=== PATIENT | male | born 2000 | race Caucasian/White ===

== ENCOUNTER 2022-07-13 12:21 | Emergency (ER) | payer OTHER, SELFPAY ==
--- NOTE | ~2022-07-13 | XR_ITS ---
EXAMINATION: XR tibia fibula LT 2V DATE: 07/13/2022 13:09 INDICATION: Left lower leg injury and pain. TECHNIQUE: 2 views of left tibia and fibula were obtained. COMPARISON: None. FINDINGS: There is an oblique fracture of proximal fibular diaphysis. The distal fracture fragment de monstrates 4 mm anterior displacement. Joint spaces are normal. IMPRESSION: 1. Oblique fracture of proximal fibular diaphysis. Reviewed, dictated and finalized at location A. [employer] TEACHER
[2022-07-13 12:35] VITALS: BP 145/87; PULSE 87; RESP 15; TEMP 37.4; O2SAT 100
--- NOTE | 2022-07-13 12:50 | ED.GENADULT ---
HPI - General Adult General Chief complaint: Extremity Injury, Lower Stated complaint: L LEG INJURY Time Seen by Provider: 07/13/22 12:41 History of Present Illness HPI narrative: 22-year-old male no medical problems presents to the emergency room for evaluation of left lower leg injury. Patient states 2 days ago he was taking his dog outside, where the dog wrapped itself around his left leg causing him to fall. States he felt his lower leg twist. Patient is complaining of pain to the lateral side of his left lower extremity. Patient dates he is able to ambulate and even stand on one leg without any pain describes the pain as a throbbing sensation. Has taken ibuprofen once with some improvement of pain. Denies any pain in his knee or his ankle. Review of Systems Review of Systems: CONSTITUTIONAL: Denies fever, chills, or sweats. EYES: Denies visual changes, redness, or discharge. ENT: Denies rhinorrhea, congestion, sore throat, or otalgia. CARDIOVASCULAR: Denies chest pain, palpitations, or edema. RESPIRATORY: Denies cough or dyspnea. GASTROINTESTINAL: Denies abdominal pain, nausea, vomiting, or diarrhea. GENITOURINARY: Denies dysuria or hematuria. SKIN: Denies rash or itching. MUSCULOSKELETAL: Reports left lower leg pain NEUROLOGIC: Denies headache, numbness, dizziness, or weakness. PSYCHIATRIC: Denies anxiety or depression. Exam Narrative: GENERAL: Well-appearing, well-nourished, no physical limitations, and in no acute distress. HEAD: Normocephalic, atraumatic. EYES: Conjunctivae normal, PERRLA and EOMI. CHEST: Clear to auscultation. No respiratory distress. No wheezes rales or rhonchi. HEART: Regular rate and rhythm. No murmur heard. Normal peripheral pulses. EXTREMITIES: LLE: Tenderness to the lower lateral milan, with notable spasms. No bony tenderness. Full range of motion of the knee and ankle joints. No obvious bony abnormality. Neurovascular is intact distally SKIN: Warm, dry, no rash. No noted wounds NEURO: No focal deficits. Alert and oriented x3. MAEW. CN's II-XI intact bilaterally, antalgic gait PSYCH: Cooperative. Normal mood and affect. Course Vital Signs Vital signs: Vital Signs Temperature 37.4 C 07/13/22 12:35 Pulse Rate 87 07/13/22 12:35 Respiratory Rate 15 07/13/22 12:35 Blood Pressure 145/87 H 07/13/22 12:35 Pulse Oximetry 100 07/13/22 12:35 Oxygen Delivery Room Air 07/13/22 12:35 Temperature 37.4 C 07/13/22 12:35 Pulse Rate 87 07/13/22 12:35 Respiratory Rate 15 07/13/22 12:35 Blood Pressure 145/87 H 07/13/22 12:35 Pulse Oximetry 100 07/13/22 12:35 Oxygen Delivery Room Air 07/13/22 12:35 Medical Decision Making Vital Signs Vital Signs: Vital Signs Temperature 37.4 C 07/13/22 12:35 Pulse Rate 87 07/13/22 12:35 Respiratory Rate 15 07/13/22 12:35 Blood Pressure 145/87 H 07/13/22 12:35 Pulse Oximetry 100 07/13/22 12:35 Oxygen Delivery Room Air 07/13/22 12:35 Temperature 37.4 C 07/13/22 12:35 Pulse Rate 87 07/13/22 12:35 Respiratory Rate 15 07/13/22 12:35 Blood Pressure 145/87 H 07/13/22 12:35 Pulse Oximetry 100 07/13/22 12:35 Oxygen Delivery Room Air 07/13/22 12:35 Imaging Data Radiologist's impression: Impressions Tibia/Fibula X-Ray 07/13/22 13:13 IMPRESSION: 1. Oblique fracture of proximal fibular diaphysis. Discharge Plan Discharge Clinical Impression: Closed left fibular fracture Patient Disposition: Home, Self-Care Condition: Stable Instructions: Antibiotic Form, Leg Fracture (ED) Prescriptions: New hydrocodone-acetaminophen 5-325 mg tablet 1 tablet PO Q6H PRN (Reason: pain) Qty: 15 0RF Follow-up/Referrals: Doug Medrano MD [Physician] - PHYSICIAN,[employer] COLLECTOR ASSISTANT [Primary Care Provider] - Time of Disposition: 13:31
== END 2022-07-13 13:55 | disposition home or self-care (01) ==
PROVIDERS: Emergency Provider Nurse Practitioner Family
DX: S89.292A Other physeal fracture of upper end of left fibula, initial encounter for closed fracture (principal); W18.39XA Other fall on same level, initial encounter
CPT/HCPCS: 29505; 73590; 99284

== ENCOUNTER 2022-09-03 09:03 | Emergency (ER) | payer OTHER, SELFPAY ==
--- NOTE | 2022-09-03 09:13 | ED.URI ---
HPI - URI/Sore Throat General Chief Complaint: Upper Respiratory Infection Stated Complaint: SORE THROAT/FEVER/CONGESTION/EARACHE Time Seen by Provider: 09/03/22 09:12 Source: patient Mode of arrival: ambulatory Limitations: no limitations History of Present Illness HPI Narrative: Lacho is a 22-year-old male patient presenting to clinic today with complaints of sore throat, fever, congestion, and earache. He reports symptoms started on Thursday. MD elicited complaint: fever, sore throat, rhinorrhea and nasal congestion Related Data Allergies Allergy/AdvReac Type Severity Reaction Status Date / Time eggs Allergy Mild Itching Uncoded 09/03/22 09:14 peanuts Allergy Mild Itching Uncoded 09/03/22 09:14 Review of Systems Review of Systems: Pertinent positives per HPI. Patient denies any fever, chills, rash, headache, visual changes, dizziness, cough, shortness of breath, chest pain, palpitations, nausea, vomiting, diarrhea, constipation, abdominal pain, or any urinary issues. PMFSH Past Medical History Medical History Ankle syndesmosis disruption Social History Social History Smoking status: Never smoker Alcohol intake: current Substance use type: does not use Occupation/Education: occupation Additional occupation/education comments: [employer] Gender identity (if verbalized by the patient): Male Comments At the time of my signature, I reviewed and agree with the nursing past medical, surgical, social, and family history. There is no relevant family history pertinent to the patient complaint. Exam Narrative: General: Well-developed, well nourished, in no apparent distress Head: Normocephalic, atraumatic Eyes: Pupils equally round and reactive to light bilaterally, EOM intact, sclera and conjunctive clear, no discharge, lids normal Ears: Left TMs intact, bulging, congested, right TM, intact, bulging, red, ear canals clear, no drainage, grossly hearing normal. Nose: Nares patent, clear nasal discharge, no inflammation, no sinus tenderness. Mouth: Oral pharynx without lesions or masses, good dentition, MMM. Oropharynx red with tonsillar swelling and exudate Neck: Supple, trachea midline, enlargement of anterior or posterior cervical nodes, no thyroid masses or goiter palpable. Cardio: Regular rate and rhythm, s1 and s2 normal, no murmur appreciated. Resp: Clear to auscultation bilaterally, no rhonchi, rales, wheezing or rubs Course Course Emergency Course: Portions of this record may have been created with voice recognition software. Level of Care: Express Care Visit Vital Signs Vital signs: Vital signs reviewed MDM - URI/Sore Throat MDM Narrative Medical decision making narrative: At the time of visit patient is resting comfortably on the exam table. I suspect patient likely has strep pharyngitis, right otitis media, and upper respiratory infection. Prescription for amoxicillin was sent to the pharmacy and supportive measures were discussed with the patient he voiced understanding of discharge instructions and agrees to treatment plan. Differential Diagnosis Differential diagnosis: Likely upper respiratory infection, otitis media, sinusitis, viral infection, bronchitis, influenza, pharyngitis and other (COVID) Discharge Plan Discharge Clinical Impression: Acute right otitis media Upper respiratory infection Qualifiers: URI type: unspecified URI Qualified Code(s): J06.9 - Acute upper respiratory infection, unspecified Pharyngitis Qualifiers: Pharyngitis/tonsillitis etiology: unspecified etiology Qualified Code(s): J02.9 - Acute pharyngitis, unspecified Patient Disposition: Home, Self-Care Condition: Stable Instructions: Antibiotic Form, Pharyngitis (ED), Ear Infection (ED), Upper Respiratory Infection (ED) Additional Instructions: Take prescription medication
[2022-09-03 09:27] VITALS: BP 153/92; PULSE 90; RESP 16; TEMP 36.2; O2SAT 100
== END 2022-09-03 09:21 | disposition home or self-care (01) ==
PROVIDERS: Emergency Provider Nurse Practitioner Family
DX: H66.91 Otitis media, unspecified, right ear (principal); J06.9 Acute upper respiratory infection, unspecified; J02.9 Acute pharyngitis, unspecified
CPT/HCPCS: 99213; G0463

== ENCOUNTER 2022-09-12 08:27 | Emergency (ER) | payer OTHER, SELFPAY ==
[2022-09-12 08:37] VITALS: BP 138/74; PULSE 67; RESP 16; TEMP 36.6; O2SAT 100
--- NOTE | 2022-09-12 08:44 | ED.URI ---
HPI - URI/Sore Throat General Chief Complaint: Upper Respiratory Infection Stated Complaint: cough, hives on chest, rt ear infection Time Seen by Provider: 09/12/22 08:44 Source: patient Mode of arrival: ambulatory Limitations: no limitations History of Present Illness HPI Narrative: 22-year-old male presented for complaint of right ear pain for 10 days. At the onset he was seen and prescribed amoxicillin, however he reports developing a cough and hives and stopped the medication after 5 days. He took Benadryl for the high is which has resolved. He continues to report decreased hearing and occasional tinnitus in the right ear. He denies shortness of breath, wheezing, nausea, vomiting, diarrhea, fevers or chills. Related Data Allergies Allergy/AdvReac Type Severity Reaction Status Date / Time amoxicillin [From Amoxil] Allergy Hives Verified 09/12/22 08:37 eggs Allergy Mild Itching Uncoded 09/03/22 09:14 peanuts Allergy Mild Itching Uncoded 09/03/22 09:14 Review of Systems Review of Systems: CONSTITUTIONAL: Denies malaise, chills, or fever. EYES: Denies visual changes, redness, or discharge. ENT: Denies rhinorrhea, congestion, sinus pain, and sore throat. Reports ear pain CARDIOVASCULAR: Denies chest pain, palpitations, or edema. RESPIRATORY: Denies cough or dyspnea. GASTROINTESTINAL: Denies abdominal pain, nausea, vomiting, diarrhea SKIN: Denies rash or itching. MUSCULOSKELETAL: Denies myalgia. NEUROLOGIC: Denies headache. All systems reviewed & are unremarkable except as noted in HPI and below PMFSH Past Medical History Medical History Ankle syndesmosis disruption Social History Social History Smoking status: Never smoker Alcohol intake: current Substance use type: does not use Occupation/Education: occupation Additional occupation/education comments: [employer] Gender identity (if verbalized by the patient): Male Comments At time of signature, agree with nursing past medical, surgical, social and family history. There is no relevant family history pertinent to the presenting complaint Exam Narrative: GENERAL: Well-appearing, and in no acute distress. HEAD: Normocephalic EYES: conjunctivae clear ENT: Nares clear. Mucous membranes moist. Left TM pearly carrero with dull light reflex; right TM erythematous, bulging, with purulent effusion; no tragal tenderness. Oropharynx without lesions or exudate. NECK: Supple. No lymphadenopathy CHEST: Clear to auscultation, breath sounds equal. HEART: Regular rate and rhythm. No murmur heard. SKIN: Warm, dry, no rash. NEURO: Alert and oriented x3. PSYCH: Normal mood and affect Course Course Emergency Course: Patient is aware of diagnosis, understands and agrees to treatment plan. Anticipatory guidance given. Patient agrees to follow-up as directed and is aware of reasons to seek care at the emergency department. Portions of this record may have been created with voice recognition software Level of Care: Express Care Visit Vital Signs Vital signs: Vital Signs Temperature 97.9 F 09/12/22 08:37 Pulse Rate 67 09/12/22 08:37 Respiratory Rate 16 09/12/22 08:37 Blood Pressure 138/74 09/12/22 08:37 Pulse Oximetry 100 09/12/22 08:37 Temperature 97.9 F 09/12/22 08:37 Pulse Rate 67 09/12/22 08:37 Respiratory Rate 16 09/12/22 08:37 Blood Pressure 138/74 09/12/22 08:37 Pulse Oximetry 100 09/12/22 08:37 Reviewed MDM - URI/Sore Throat MDM Narrative Medical decision making narrative: Patient was treated on 09/03 with amoxicillin for right otitis media. However he reported a cough as well as hives, so will switch to doxycycline instead of cephalosporin. Advised supportive measures and signs/symptoms to go to the ER. Pt is appropriate for outpt treatment and f/u. Differential Diagnosis Differential diagnosis: Likel
== END 2022-09-12 08:56 | disposition home or self-care (01) ==
PROVIDERS: Emergency Provider Nurse Practitioner Family
DX: H66.91 Otitis media, unspecified, right ear (principal)
CPT/HCPCS: 99213; G0463

== ENCOUNTER 2023-07-24 10:12 | Emergency (ER) | payer OTHER, SELFPAY ==
[2023-07-24 10:35] VITALS: BP 135/70; PULSE 72; RESP 16; TEMP 36.6; O2SAT 100
--- NOTE | 2023-07-24 10:53 | ED.EAR ---
HPI - Ear Problem General Chief complaint: Ear Stated complaint: Right Earache Time Seen by Provider: 07/24/23 10:53 Source: patient Mode of arrival: ambulatory Limitations: no limitations History of Present Illness HPI Narrative: 23-year-old male presented for complaint of right ear pain and sore throat over the past few days. Reports some dizziness. Denies tinnitus or ear drainage, shortness breath, wheezing, difficulty maintaining secretions, nausea, vomiting, fevers or chills. Taking Zyrtec and ibuprofen. MD Complaint: ear pain Related Data Allergies Allergy/AdvReac Type Severity Reaction Status Date / Time amoxicillin [From Amoxil] Allergy Hives Verified 07/24/23 10:31 eggs Allergy Mild Itching Uncoded 07/24/23 10:31 peanuts Allergy Mild Itching Uncoded 07/24/23 10:31 Review of Systems Review of Systems: CONSTITUTIONAL: Denies malaise, chills, or fever. EYES: Denies visual changes, redness, or discharge. ENT: Denies rhinorrhea, congestion, sinus pain, Reports ear pain and sore throat. CARDIOVASCULAR: Denies chest pain, palpitations, or edema. RESPIRATORY: Denies cough or dyspnea. GASTROINTESTINAL: Denies abdominal pain, nausea, vomiting, diarrhea SKIN: Denies rash or itching. MUSCULOSKELETAL: Denies myalgia. NEUROLOGIC: Denies headache. All systems reviewed & are unremarkable except as noted in HPI and below PMFSH Past Medical History Medical History Ankle syndesmosis disruption Social History Social History Smoking status: Never smoker Alcohol intake: current Substance use type: does not use Occupation/Education: occupation Additional occupation/education comments: [employer] Gender identity (if verbalized by the patient): Male Comments At time of signature, agree with nursing past medical, surgical, social and family history. There is no relevant family history pertinent to the presenting complaint Exam Narrative: GENERAL: Well-appearing, well-nourished, and in no acute distress. EYES: PERRLA, conjunctivae clear ENT: Nares clear. Mucous membranes moist. TM pearly carrero with dull light reflex bilaterally, right clear effusion; no tragal tenderness. Oropharynx erythematous Tonsils enlarged; no drooling, no hoarseness, no trismus, uvula midline. NECK: Supple. No lymphadenopathy CHEST: Clear to auscultation, breath sounds equal. No wheezing, rhonchi, rales, or stridor. No respiratory distress, speaks in full sentences. HEART: Regular rate and rhythm. No murmur heard. SKIN: Warm, dry, no rash. NEURO: Alert and oriented x3. PSYCH: Normal mood and affect Course Course Emergency Course: Patient is aware of diagnosis, understands and agrees to treatment plan. Anticipatory guidance given. Patient agrees to follow-up as directed and is aware of reasons to seek care at the emergency department. Portions of this record may have been created with voice recognition software Level of Care: Express Care Visit Vital Signs Vital signs: Vital Signs Temperature 97.9 F 07/24/23 10:35 Pulse Rate 72 07/24/23 10:35 Respiratory Rate 16 07/24/23 10:35 Blood Pressure 135/70 07/24/23 10:35 Pulse Oximetry 100 07/24/23 10:35 Temperature 97.9 F 07/24/23 10:35 Pulse Rate 72 07/24/23 10:35 Respiratory Rate 16 07/24/23 10:35 Blood Pressure 135/70 07/24/23 10:35 Pulse Oximetry 100 07/24/23 10:35 Reviewed Medical Decision Making MDM Narrative Medical decision making narrative: Discussed physical exam findings. Deferred strep testing based on his severe gag reflex will treat based on PE and CC. Advised supportive measures and signs/symptoms to go to the ER. Patient is appropriate for outpatient treatment and follow-up. Differential Diagnosis Differential Diagnosis: Coronavirus, strep pharyngitis, allergic rhinitis, upper respiratory tract infection, sinus
== END 2023-07-24 11:02 | disposition home or self-care (01) ==
PROVIDERS: Emergency Provider Nurse Practitioner Family
DX: J02.9 Acute pharyngitis, unspecified (principal)
CPT/HCPCS: 99213; G0463

== ENCOUNTER 2025-02-21 10:00 | Outpatient (CLI) | payer OTHER, SELFPAY ==
--- NOTE | ~2025-02-21 | MR_ITS ---
EXAMINATION: MR cervical spine wo con DATE: 02/21/2025 10:32 INDICATION: Cervical radiculopathy TECHNIQUE: Magnetic resonance imaging (MRI) of the cervical spine was performed without intravenous c ontrast. Sequences included sagittal T2-weighted FSE, sagittal T2-weighted FS FSE, sagittal T1-weight ed FSE, axial MERGE and axial T2-weighted FSE. COMPARISON: None FINDINGS: Straightening of the normal cervical lordosis. Vertebral body heights are normal. Small T1 hyperinte nse hemangioma at T4. Bone marrow signal intensity is otherwise normal. Mild disc height loss at C5-C 6. Remaining cervical and upper thoracic discs are normal. Cord signal intensity is normal. Cervical soft tissues are unremarkable. The following disc levels are specifically discussed: C2-C3: The disc does not extend beyond the endplate margin. There is no uncovertebral joint osteoarth ritis. There is mild bilateral facet joint osteoarthritis. There is no neural foraminal stenosis. The re is no central canal stenosis. C3-C4: The disc does not extend beyond the endplate margin. There is mild right uncovertebral joint o steoarthritis. There is mild left facet joint osteoarthritis. There is no neural foraminal stenosis. There is no central canal stenosis. C4-C5: The disc does not extend beyond the endplate margin. There is no uncovertebral joint osteoarth ritis. There is mild left facet joint osteoarthritis. There is no neural foraminal stenosis. There is no central canal stenosis. C5-C6: Annular fissure and small central disc protrusion. There is no uncovertebral joint osteoarthri tis. There is mild left facet joint osteoarthritis. There is no neural foraminal stenosis. There is m inimal central canal stenosis. C6-C7: The disc does not extend beyond the endplate margin. There is mild bilateral uncovertebral jing nt osteoarthritis. There is mild left facet joint osteoarthritis. There is no neural foraminal stenos is. There is no central canal stenosis. C7-T1: The disc does not extend beyond the endplate margin. There is no uncovertebral joint osteoarth ritis. There is mild bilateral facet joint osteoarthritis. There is no neural foraminal stenosis. The re is no central canal stenosis. IMPRESSION: 1. Very mild cervical spondylosis. Reviewed, dictated and finalized at location A.
== END 2025-02-21 10:01 | disposition home or self-care (01) ==
LOC: MICIMG 10:02
PROVIDERS: PCP Orthopaedic Surgery; Visit Provider Orthopaedic Surgery
DX: M47.812 Spondylosis without myelopathy or radiculopathy, cervical region (principal)
CPT/HCPCS: 72141